=== PATIENT | male | born 1970 | race Caucasian/White ===

== ENCOUNTER 2017-08-13 15:09 | Emergency (ER) | payer SELFPAY ==
[~2017-08-13] VITALS: Ht 175.3 cm; Wt 97.2 kg
[2017-08-13] MEDS ORDERED: ULTRAM50 MG PO (15:43)
[2017-08-13 16:15] VITALS: BP 164/119
== END 2017-08-13 16:16 | disposition home or self-care (01) ==
LOC: EME 15:09
PROC: 3E0T3BZ Introduction of Anesthetic Agent into Peripheral Nerves and Plexi, Percutaneous Approach (ICD-10-PCS; principal; 2017-08-13)
DX: K02.9 Dental caries, unspecified (principal); S02.5XXD Fracture of tooth (traumatic), subsequent encounter for fracture with routine healing; V49.9XXD Car occupant (driver) (passenger) injured in unspecified traffic accident, subsequent encounter
CPT/HCPCS: 99281; 99283